=== PATIENT | male | born 1980 | race Caucasian/White ===

== ENCOUNTER 2016-03-14 09:49 | Emergency (ER) | payer OTHER, MEDICAID ==
--- NOTE | 2016-03-14 10:26 | EDDOCDS ---
Physician Documentation [facility] Name: Keyon Last Age: 35 yrs Sex: Male : 1980 Arrival Date: 03/14/2016 Time: 09:49 Bed Triage 1 Private MD: Disposition: 03/14/16 10:17 Discharged to Home/Self Care. Impression: Radiculopathy, cervical region. - Condition is Stable. - Discharge Instructions: Cervical Radiculopathy, [id number]. - Prescriptions for Robaxin- 750 750 mg Oral Tablet - take 1 tablet by ORAL route every 6 hours As needed; 40 tablet. etodolac 200 mg Oral Capsule - take 1 capsule by ORAL route 3 times per day; 30 capsule. - Medication Reconciliation, Local Pharmacy Hours form. - Follow up: [facility]; When: Call to arrange an appointment; Reason: Further diagnostic work-up, Recheck today's complaints, Continuance of care. - Problem is an ongoing problem. - Symptoms are unchanged. Historical: - Allergies: No known drug Allergies; - Home Meds: 1. none - PMHx: none; - PSHx: none; - Social history: Smoking status: Patient uses tobacco products, heavy tobacco smoker. No barriers to communication noted, The patient speaks fluent Sami. - : The pt / caregiver states he / she is not on anticoagulants. Home medication list is obtained from the patient. - Exposure Risk Screening:: None identified. Vital Signs: 03/14 09:51 BP 138 / 78; Pulse 75; Resp 16; Temp 97.5(O); Pulse Ox 97% ; Weight 105.23 kg / 231.99 cmb lbs (M); Height 5 ft. 7 in. (170.18 cm); Pain 9/10; 09:51 Body Mass Index 36.34 (105.23 kg, 170.18 cm) cmb MDM: 10:14 Financial registration complete. pm4 10:15 [place] Payment Agreement was scanned into [employer] and attached to record. pm4 Signatures: Lluvia Scott RN RN Olvin Oseguera PA PA btw Ye Dao, Reg Reg pm4 The chart was reviewed and I authenticate all verbal orders and agree with the evaluation and treatment provided.Attachments: 10:15 [facility] Payment Agreement pm4 MTDD
--- NOTE | 2016-03-14 10:26 | EDDOCDS ---
Nurse's Notes [facility] Name: Keyon Last Age: 35 yrs Sex: Male : 1980 Arrival Date: 03/14/2016 Time: 09:49 Bed Triage 1 Private MD: Diagnosis: Radiculopathy, cervical region Presentation: 03/14 09:56 Presenting complaint: Patient states: he has had pain in his right shoulder for 1-2 kcs months - no known injury. Adult Sepsis Screening: The patient does not have new or worsening altered mentation. Patient's respiratory rate is less than 22. Systolic blood pressure is greater than 100. Patient has a qSOFA score of 0- Negative Sepsis Screen. Suicide/Homicide risk assessment- the patient denies having any suicidal and/or homicidal ideations and does not present with any other emotional, behavioral or mental health complaints. Status: Patient is not a bilingual customer service specialist or dependent. Transition of care: patient was not received from another setting of care. 09:56 Acuity: JACQUELINE Level 4 kcs 09:56 Method Of Arrival: Walkin/Carried/Asstd kcs Triage Assessment: 09:58 General: Appears comfortable, well developed, well nourished, well groomed, Behavior is kcs cooperative, pleasant. Pain: Location: right shoulder Pain currently is 9 out of 10 on a pain scale. Pt Declines HIV testing. Neurological: Level of Consciousness is awake, alert. Respiratory: Airway is patent Respiratory effort is even, unlabored, Respiratory pattern is regular, symmetrical. Derm: Skin is intact, is healthy with good turgor, Skin is dry, Skin is normal. Historical: - Allergies: No known drug Allergies; - Home Meds: 1. none - PMHx: none; - PSHx: none; - Social history: Smoking status: Patient uses tobacco products, heavy tobacco smoker. No barriers to communication noted, The patient speaks fluent Wolof. - : The pt / caregiver states he / she is not on anticoagulants. Home medication list is obtained from the patient. - Exposure Risk Screening:: None identified. Vital Signs: 09:51 BP 138 / 78; Pulse 75; Resp 16; Temp 97.5(O); Pulse Ox 97% ; Weight 105.23 kg (M); cmb Height 5 ft. 7 in. (170.18 cm); Pain 9/10; 09:51 Body Mass Index 36.34 (105.23 kg, 170.18 cm) cmb Vitals: 09:51 Log In Time: March 14, 2016 at 09:49. cmb ED Course: 09:50 Patient visited by Anni Saleh. cmb 09:50 Patient moved to Waiting cmb 09:52 Patient moved to Pre RCE cmb 09:57 Triage Initiated kcs 10:01 Patient moved to Triage 1 bcj 10:03 Olvin Marcelino PA is PHCP. btw 10:03 Constance Deshpande MD is Attending Physician. btw 10:03 Patient visited by Olvin Marcelino PA. btw 10:14 Patient name changed from Keyon\S\\S\[place]\S\ to Keyon\S\[place]\S\[place]. EDMS 10:15 [place] Payment Agreement was scanned into [employer] and attached to record. pm4 10:17 [facility] is Referral Physician. btw Order Results: There are currently no results for this order. Outcome: 10:17 Discharge ordered by Provider. btw 10:25 Patient left the ED. kcs Signatures: Dispatcher [employer] EDMS Lluvia Scott RN RN Mika Sheets RN RN Olvin Birght PA PA btw Anni Saleh cmb Ye Dao, Reg Reg pm4 MTDD
--- NOTE | 2016-03-16 11:26 | EDDOCDS ---
Physician Documentation [facility] Name: Keyon Last Age: 35 yrs Sex: Male : 1980 Arrival Date: 03/14/2016 Time: 09:49 Bed Triage 1 Private MD: Disposition: 03/14/16 10:17 Discharged to Home/Self Care. Impression: Radiculopathy, cervical region. - Condition is Stable. - Discharge Instructions: Cervical Radiculopathy, [id number]. - Prescriptions for Robaxin- 750 750 mg Oral Tablet - take 1 tablet by ORAL route every 6 hours As needed; 40 tablet. etodolac 200 mg Oral Capsule - take 1 capsule by ORAL route 3 times per day; 30 capsule. - Medication Reconciliation, Local Pharmacy Hours form. - Follow up: [facility]; When: Call to arrange an appointment; Reason: Further diagnostic work-up, Recheck today's complaints, Continuance of care. - Problem is an ongoing problem. - Symptoms are unchanged. Historical: - Allergies: No known drug Allergies; - Home Meds: 1. none - PMHx: none; - PSHx: none; - Social history: Smoking status: Patient uses tobacco products, heavy tobacco smoker. No barriers to communication noted, The patient speaks fluent Pashto. - Family history: Not pertinent. - : The pt / caregiver states he / she is not on anticoagulants. Home medication list is obtained from the patient. - Exposure Risk Screening:: None identified. Vital Signs: 03/14 09:51 BP 138 / 78; Pulse 75; Resp 16; Temp 97.5(O); Pulse Ox 97% ; Weight 105.23 kg / 231.99 cmb lbs (M); Height 5 ft. 7 in. (170.18 cm); Pain 9/10; 09:51 Body Mass Index 36.34 (105.23 kg, 170.18 cm) cmb MDM: 10:14 Financial registration complete. pm4 10:15 [facility] Payment Agreement was scanned into [employer] and attached to record. pm4 03/15 10:29 T-Sheet-- Draft Copy was scanned into [employer] and attached to record. gb Signatures: Lluvia Scott RN RN Alana Dexter, Ranulfo Reg gb Olvin Marcelino PA PA btw Ye Dao, Reg Reg pm4 The chart was reviewed and I authenticate all verbal orders and agree with the evaluation and treatment provided.Attachments: 03/14 10:15 [place] pm4 03/15 10:29 T-Sheet-- Draft Copy gb Chart Complete MTDD
--- NOTE | 2016-03-16 11:26 | EDDOCDS ---
Nurse's Notes [facility] Name: Keyon Last Age: 35 yrs Sex: Male : 1980 Arrival Date: 03/14/2016 Time: 09:49 Bed Triage 1 Private MD: Diagnosis: Radiculopathy, cervical region Presentation: 03/14 09:56 Presenting complaint: Patient states: he has had pain in his right shoulder for 1-2 kcs months - no known injury. Adult Sepsis Screening: The patient does not have new or worsening altered mentation. Patient's respiratory rate is less than 22. Systolic blood pressure is greater than 100. Patient has a qSOFA score of 0- Negative Sepsis Screen. Suicide/Homicide risk assessment- the patient denies having any suicidal and/or homicidal ideations and does not present with any other emotional, behavioral or mental health complaints. Status: Patient is not a emergency service worker or dependent. Transition of care: patient was not received from another setting of care. 09:56 Acuity: JACQUELINE Level 4 kcs 09:56 Method Of Arrival: Walkin/Carried/Asstd kcs Triage Assessment: 09:58 General: Appears comfortable, well developed, well nourished, well groomed, Behavior is kcs cooperative, pleasant. Pain: Location: right shoulder Pain currently is 9 out of 10 on a pain scale. Pt Declines HIV testing. Neurological: Level of Consciousness is awake, alert. Respiratory: Airway is patent Respiratory effort is even, unlabored, Respiratory pattern is regular, symmetrical. Derm: Skin is intact, is healthy with good turgor, Skin is dry, Skin is normal. Historical: - Allergies: No known drug Allergies; - Home Meds: 1. none - PMHx: none; - PSHx: none; - Social history: Smoking status: Patient uses tobacco products, heavy tobacco smoker. No barriers to communication noted, The patient speaks fluent Portuguese. - Family history: Not pertinent. - : The pt / caregiver states he / she is not on anticoagulants. Home medication list is obtained from the patient. - Exposure Risk Screening:: None identified. Screenin:20 Screening information is obtained from prior medical records. Fall risk: No risks kcs identified. Assistance ADL's: requires no assistance with activities of daily living. Abuse/DV Screen: The patient / caregiver reports he/she is: not in a situation that causes fear, pain or injury. Nutritional screening: No deficits noted. Advance Directives: Currently, there is no health care proxy. home support is adequate. Assessment: 10:20 Reassessment: Patient states symptoms have not improved. General: Appears comfortable, kcs well developed, well nourished, Behavior is cooperative, pleasant. Pain: Location: right shoulder. Neurological: Level of Consciousness is awake, alert. Respiratory: Airway is patent Respiratory effort is even, unlabored, Respiratory pattern is regular, symmetrical. Derm: Skin is intact, is healthy with good turgor, Skin is dry, Skin is normal. Vital Signs: 09:51 BP 138 / 78; Pulse 75; Resp 16; Temp 97.5(O); Pulse Ox 97% ; Weight 105.23 kg (M); cmb Height 5 ft. 7 in. (170.18 cm); Pain 9/10; 09:51 Body Mass Index 36.34 (105.23 kg, 170.18 cm) cmb Vitals: 09:51 Log In Time: March 14, 2016 at 09:49. cmb ED Course: 09:50 Patient visited by Anni Saleh. cmb 09:50 Patient moved to Waiting cmb 09:52 Patient moved to Pre RCE cmb 09:57 Triage Initiated kcs 10:01 Patient moved to Triage 1 bcj 10:03 Olvin Marcelino PA is PHCP. btw 10:03 Constance Deshpande MD is Attending Physician. btw 10:03 Patient visited by Olvin Marcelino PA. btw 10:14 Patient name changed from Keyon\S\\S\[place]\S\ to Keyon\S\[place]\S\[place]. EDMS 10:15 [facility] Agreement was scanned into [employer] and attached to record. pm4 10:17 [facility] is Referral Physician. btw 10:20 The patient / caregiver is instructed regarding the plan of care and ED course. kcs 10:20 No IV's were initiated during this patient's visit. No procedures done that require kcs assistance. 03/15 10:29 T-Sheet-- Draft Copy was scanned into [employer] and attached to record. gb Order Results: There are currently no results for this order. Outcome: 03/14 10:17 Discharge ordered by Provider. btw 10:20 Discharge Assessment: Patient awake, alert and oriented x 3. No cognitive and/or kcs functional deficits noted. Patient verbalized understanding of disposition instructions. Patient awake and alert. patient administered narcotics - no. The following High Risk Discharge criteria are identified: None. Discharged to home ambulatory. Condition: stable. Discharge instructions given to patient, Instructed on discharge instructions, follow up and referral plans. medication usage, Demonstrated understanding of instructions, medications, Pt was receptive of discharge instructions/ teaching. No special radiology studies were completed. Property sent home with patient. 10:25 Patient left the ED. kcs Signatures: Dispatcher [employer] EDLluvia Cano RN RN Mika Sheets RN RN Alana Farfan, Reg Reg gb Olvin Marcelino PA PA btw Anni Saleh cmYe [place], Reg Reg pm4 Chart Complete MTDD
--- NOTE | 2016-03-16 11:26 | EDDOCDS ---
Physician Documentation [facility] Name: Keyon Last Age: 35 yrs Sex: Male : 1980 Arrival Date: 03/14/2016 Time: 09:49 Bed Triage 1 Private MD: Disposition: 03/14/16 10:17 Discharged to Home/Self Care. Impression: Radiculopathy, cervical region. - Condition is Stable. - Discharge Instructions: Cervical Radiculopathy, [id number]. - Prescriptions for Robaxin- 750 750 mg Oral Tablet - take 1 tablet by ORAL route every 6 hours As needed; 40 tablet. etodolac 200 mg Oral Capsule - take 1 capsule by ORAL route 3 times per day; 30 capsule. - Medication Reconciliation, Local Pharmacy Hours form. - Follow up: [facility]; When: Call to arrange an appointment; Reason: Further diagnostic work-up, Recheck today's complaints, Continuance of care. - Problem is an ongoing problem. - Symptoms are unchanged. Historical: - Allergies: No known drug Allergies; - Home Meds: 1. none - PMHx: none; - PSHx: none; - Social history: Smoking status: Patient uses tobacco products, heavy tobacco smoker. No barriers to communication noted, The patient speaks fluent Hebrew. - Family history: Not pertinent. - : The pt / caregiver states he / she is not on anticoagulants. Home medication list is obtained from the patient. - Exposure Risk Screening:: None identified. Vital Signs: 03/14 09:51 BP 138 / 78; Pulse 75; Resp 16; Temp 97.5(O); Pulse Ox 97% ; Weight 105.23 kg / 231.99 cmb lbs (M); Height 5 ft. 7 in. (170.18 cm); Pain 9/10; 09:51 Body Mass Index 36.34 (105.23 kg, 170.18 cm) cmb MDM: 10:14 Financial registration complete. pm4 10:15 [facility] Payment Agreement was scanned into [employer] and attached to record. pm4 03/15 10:29 T-Sheet-- Draft Copy was scanned into [employer] and attached to record. gb Signatures: Lluvia Scott RN RN Alana Dexter, Ranulfo Reg gb Olvin Marcelino PA PA btw Ye Dao, Reg Reg pm4 The chart was reviewed and I authenticate all verbal orders and agree with the evaluation and treatment provided.Attachments: 03/14 10:15 [place] [place] Payment Agreement pm4 03/15 10:29 T-Sheet-- Draft Copy gb Chart Complete MTDD
== END 2016-03-14 10:25 | disposition home or self-care (01) ==
LOC: M ED 09:49
DX: M50.10 Cervical disc disorder with radiculopathy, unspecified cervical region (principal); F17.210 Nicotine dependence, cigarettes, uncomplicated

== ENCOUNTER → 2017-09-11 | Outpatient (CLI) | payer MEDICAID | LOC: M OUTALCOH 09:18 | DX: F10.20 Alcohol dependence, uncomplicated (principal) ==

== ENCOUNTER 2017-09-25 11:30 | Outpatient (RCR) | payer MEDICAID | END 2017-10-09 | LOC: M OUTALCOH 11:30 | DX: F10.20 Alcohol dependence, uncomplicated (principal) ==

== ENCOUNTER → 2023-04-10 | Outpatient (CLI) | payer MEDICAID | LOC: M OUTALCOH 07:53 | PROVIDERS: ATTEND Psychiatry & Neurology Psychiatry | DX: Z13.39 Encounter for screening examination for other mental health and behavioral disorders (principal) ==

== ENCOUNTER 2023-05-02 07:59 | Outpatient (RCR) | payer MEDICAID | END 2023-05-10 | LOC: M OUTALCOH 07:59 | PROVIDERS: ATTEND Psychiatry & Neurology Psychiatry | DX: F12.10 Cannabis abuse, uncomplicated (principal) ==

== ENCOUNTER 2023-07-02 11:13 | Emergency (ER) | payer BC, MEDICAID, OTHER ==
[~2023-07-02] VITALS: Ht 170.2 cm; Wt 92.8 kg
[2023-07-02 13:30] LABS: BARBITURATES URINE NEGATIVE (NEGATIVE); COCAINE METABOLITE URINE NEGATIVE (NEGATIVE); METHADONE URINE NEGATIVE (NEGATIVE); OPIATES URINE NEGATIVE (NEGATIVE); PHENCYCLIDINE URINE NEGATIVE (NEGATIVE)
[2023-07-02 13:31] LABS: BENZODIAZEPINES URINE NEGATIVE (NEGATIVE)
[2023-07-02 13:33] VITALS: TEMP 98.2
[2023-07-02 13:34] LABS: AMPHETAMINES LEVEL URINE POSITIVE (NEGATIVE); CANNABINOIDS URINE POSITIVE (NEGATIVE)
[2023-07-02 15:04] VITALS: BP 145/84; O2SAT 97
[2023-07-02 15:50] LABS: BASO # 0.1 10^3/uL (0.0-0.2); BASO % 0.6 % (0.0-1.0); EOS # 0.2 10^3/uL (0.0-0.5); EOS % 2.3 % (0.0-3.0); HEMATOCRIT 45.1 % (42.0-52.0); HEMOGLOBIN 15.2 g/dl (13.5-17.5); LYMPH # 2.9 10^3/uL (1.5-5.0); MEAN CORPUSCULAR HEMOGLOBIN 31.3 pg (27.0-33.0); MEAN CORPUSCULAR HGB CONC 33.7 g/dl (32.0-36.5); MONO # 0.7 10^3/uL (0.0-0.8); MONO % 9.1 % (2.0-8.0); NEUTROPHILS # 3.9 10^3/uL (1.5-8.5); NEUTROPHILS % 50.7 % (36.0-66.0); PLATELET COUNT, AUTOMATED 258 10^3/uL (150-450); RED BLOOD COUNT 4.85 10^6/uL (4.30-6.10); WHITE BLOOD COUNT 7.7 10^3/uL (4.0-10.0)
[2023-07-02 16:03] LABS: ETHYL ALCOHOL (ETHANOL) < 0.003 % (0.000-0.010)
[2023-07-02 16:05] LABS: ALKALINE PHOSPHATASE 92 U/L (46-116); ALT/SGPT 32 U/L (7.0-40); AST/SGOT 26 U/L (<34); BILIRUBIN,DIRECT 0.3 MG/DL (<0.4); BLOOD UREA NITROGEN 14 MG/DL (9-23); CALCIUM LEVEL 9.3 MG/DL (8.5-10.1); CARBON DIOXIDE LEVEL 27 MMOL/L (20-31); CHLORIDE LEVEL 104 MMOL/L (98-107); CREATININE FOR GFR 0.82 MG/DL (0.70-1.30); GLOMERULAR FILTRATION RATE > 60.0 (>60); GLUCOSE, FASTING 91 MG/DL (60-100); POTASSIUM SERUM 3.8 MMOL/L (3.5-5.1); SALICYLATE LEVEL < 3.0 MG/DL (<30); SODIUM LEVEL 139 MMOL/L (136-145); TOTAL PROTEIN 7.1 G/DL (5.7-8.2)
[2023-07-02 16:06] LABS: THYROID STIMULATING HORMONE 2.983 uIU/ML (0.55-4.78)
[2023-07-02 16:19] LABS: OSMOLALITY SERUM 304 MOSM/KG (275-295)
== END 2023-07-02 16:31 | disposition left against medical advice (07) ==
LOC: M ED 11:13
DX: F15.10 Other stimulant abuse, uncomplicated (principal); Z53.9 Procedure and treatment not carried out, unspecified reason; F17.200 Nicotine dependence, unspecified, uncomplicated